=== PATIENT | female | born 1985 | race Caucasian/White ===

== ENCOUNTER 2019-08-24 09:55 | Emergency (ER) | payer SELFPAY ==
[2018-10-08 13:31] VITALS: BMI 20.7
[2019-08-24 09:55] VITALS: BP 137/102; PULSE 119; RESP 16; TEMP 36.6; O2SAT 100; BMI 21.7
--- NOTE | 2019-08-24 10:00 | RAD_ITS ---
STUDY: X-RAY - LEFT FOOT CLINICAL: Female, 34 years old. PAIN STARTED X 3 WEEKS AGO THEN HURT IT AGAIN X TWO DAYS AGO. PAIN WAS SECOND TIME WORSE. PAIN WORSE 2,3,4,5 MTP JOINT AREA. TECHNIQUE: 3 view(s) of the foot. COMPARISON: None. FINDINGS: Normal talus, calcaneus, and tarsal bones. Normal visualized subtalar, talonavicular, calcaneocuboid, tarsal and tarsometatarsal articulations. There is evidence of erosive changes in the head of the fifth metatarsal with mild subluxation at the proximal interphalangeal joint of the fifth toe. Soft tissue swelling is seen at the fifth metatarsal phalangeal joint. Osteomyelitis should be ruled out. Normal metatarsophalangeal joint of the great toe. Normal tibial and fibular sesamoid bones. Normal interphalangeal joint of the great toe. Normal phalanges of the great toe. Normal second through fifth metatarsophalangeal joints. Normal interphalangeal joints and phalanges of the lesser toes. RAD/Foot min 3 Views IMPRESSION: Erosive changes with overlying soft tissue swelling at the head of the fifth metatarsal with a subluxation of the fifth metatarsophalangeal joint. Osteo myelitis should be ruled out. Electronically Signed: Patrice Zambrano, at 10:45 EST , Service support ,
--- NOTE | 2019-08-24 11:01 | ED.VIS.GEN ---
History of Present Illness Chief Complaint: Lower Extremity Injury Informant: Patient Narrative: Patient presents for evaluation of left foot pain. Patient states she injured it a couple weeks ago and it was not fully back to normal when she kicked something and bent the toes back 2 days ago. She notes pain at the base of the third and second toes. She notes some swelling on the plantar surface. She has been trying to walk on the side of her foot which does not cause some inflammation around the lateral fifth MTP joint. The patient reports that she has some swelling unrelated to her visit on her right interphalangeal joints of her hand. She is curious about rheumatoid. Past Medical History - Allergies and Home Meds Allergies/Adverse Reactions: Allergies No Known Allergies Allergy (Verified 10/08/18 13:33) Smoking Status: Current every day smoker Review of Systems General: Denies: Chills, Fever, Sweats Eyes: Denies: Visual changes - bilaterally, Diplopia ENT: Denies: Rhinorrhea, Sore throat Cardiovascular: Denies: Chest pain, Palpitations Respiratory: Denies: Dyspnea, Cough, Dyspnea on exertion Gastrointestinal: Denies: Abdominal pain, Nausea, Vomiting, Diarrhea, Melena, Hematochezia Genitourinary: Denies: Dysuria, Hematuria, Frequency Musculoskeletal: Reports: Extremity Pain. Denies: Back pain Skin: Denies: Rash, Wounds Neurological: Denies: Headache, Weakness, Numbness Physical Exam Vital Signs/Narrative: Vital Signs Temp Pulse Resp BP Pulse Ox 08/24/19 09:55 98 F 119 H 16 137/102 H 100 Inital Vital Signs reviewed: Yes General: Well nourished, Well developed, No Acute Distress Head: Normocephalic, Atraumatic Eyes: Perrl, EOMI ENT: Moist mucous membranes, No rhinorrhea Neck: Supple, Nontender Cardiovascular: Regular rate, Regular rhythm, No murmurs Respiratory: No distress, CTA bilaterally, Chest nontender Abdomen: Soft, Nontender, Nondistended, Normal bowel sounds Back: Nontender, Normal Inspection Extremities: No edema, Tenderness - Tender to palpation over the second and third MTP joint. There is some ecchymosis on the plantar surface. There is some swelling over the lateral fifth MTP joint is nontender. There is some subluxation of the fifth digit on the foot. There is also some rheumatoid-like changes of the right middle finger interphalangeal joint. Skin: Normal color, No rash Neurological: Alert, Oriented x3, Cranial nerves II-XII grossly intact, Normal Strength, Normal Sensation Psychological: Normal affect, Normal Mood Diagnostic/Tx/Re-eval - Medical Decision Making X-rays were negative for fracture. She be placed in a postop shoe and crutches as is very painful for her to bear weight. She will follow-up with podiatry. I have also asked that she follow-up with her PCP to discuss possible evaluation of rheumatoid arthritis.. ED Disposition - Plan for ED Patient: Disposition: Home or Assisted Living Diagnosis: Foot sprain Instructions: What Is Rheumatoid Arthritis?, Sprain Foot Referrals: Care Physician,No Primary [Primary Care Provider] - Orlando Mathur DPM [STAFF PHYSICIAN] - As soon as possible Og Orosco III, MD [STAFF PHYSICIAN] - (for primary care physician if you need one)
[2019-08-24 11:32] VITALS: RESP 16
--- NOTE | 2019-08-24 11:33 | ED.RN ---
REVIEWED D/C INSTRUCTIONS, FOLLOW UP CARE, AND S/S THAT WOULD WARRANT A RETURN TO THE ED WITH PT. PT VERBALIZED AN UNDERSTANDING AND DENIES FURTHER QUESTIONS FOR THIS RN. PT SKIN P/W/D, RESP EVEN AND UNLABORED, PT A&O X 3, NO DISTRESS NOTED. PT AMBULATED OUT OF ED, GAIT STEADY.
== END 2019-08-24 11:34 | disposition home or self-care (01) ==
LOC: ED 11:07
PROVIDERS: Emergency Provider Emergency Medicine
DX: S93.602A Unspecified sprain of left foot, initial encounter (principal); W22.8XXA Striking against or struck by other objects, initial encounter; Y93.9 Activity, unspecified; Y92.9 Unspecified place or not applicable; F17.200 Nicotine dependence, unspecified, uncomplicated
CPT/HCPCS: 73630; 99284

== ENCOUNTER 2021-03-21 15:18 | Emergency (ER) | payer SELFPAY ==
[2021-03-21 15:19] VITALS: BP 137/91; PULSE 92; RESP 18; TEMP 37.7; O2SAT 100; BMI 20.9
--- NOTE | 2021-03-21 15:25 | CM.ED ---
SOCIAL WORK Received call from Hortencia with Crisis prior to patient's arrival. Hortencia has completed assessment and will be bringing in copy of assessment and [place]. Patient requires inpatient psych hospitalization. Patient is self-pay. Crisis to work on placement once patient is medically cleared. Staff alma. Janis Day, PHOTOGRAPHS CURATOR, FURNACE MASON
--- NOTE | 2021-03-21 15:27 | EKG12_ITS ---
Test Reason : SI Blood Pressure : / mmHG Vent. Rate : 071 BPM Atrial Rate : 071 BPM P-R Int : 128 ms QRS Dur : 074 ms QT Int : 396 ms P-R-T Axes : 053 008 018 degrees QTc Int : 430 ms Normal sinus rhythm Normal ECG Confirmed by NAN PANTOJA, MARY ([id number]), film editor supervisor FIDEL GALDAMEZ ([id number]) on 03/26/2021 1:00:22 PM Referred By: JENISE/YVETTE Confirmed By:MARY MONTANA MD
[2021-03-21 15:54] LABS: Bacteria 0 SEEN /hpf (None Seen); Mucous, Urine 0 SEEN /hpf (<or=2+); Red Blood Cells-Urine 0 SEEN /hpf (0-5); White Blood Cells 0 SEEN /hpf (0-5)
[2021-03-21 15:57] LABS: Absolute Lymphocyte Count 1.56 X10^3/uL (0.83-4.51); Absolute Neutrophil Count 7.3 X10^3/uL (2.0-7.7); Basophil# 0.03 X10^3/uL; Basophil% 0.3 % (0-1); Eosinophil# 0.12 X10^3/uL; Eosinophils% 1.2 % (0-5); Hematocrit 48.8 % (37-47); Hemoglobin 16.8 g/dL (12.0-15.0); Lymphocyte # 1.56 X10^3/ul (0.83-4.51); Mean Corp Hgb Conc 34.4 g/dL (32-36); Mean Corpuscular Hgb 32.4 pg (27.0-32.0); Mean Platelet Vol. 8.3 fl (6.2-12.0); Monocyte# 0.63 X10^3/uL; Monocyte% 6.5 % (0-10); NRBC Flagged by Analyzer 0 % (0-5); Neutrophil # 7.34 X10^3/uL (2.7-7.7); Neutrophil % 75.6 % (47-70); Platelet Count 319 K/mm3 (150-450); RBC Distribution Width CV 12.6 % (11.6-14.6); RBC Distribution Width SD 43.7 fl (35.1-43.9); Red Blood Count 5.19 M/mm3 (4.2-5.4); White Blood Count 9.7 K/mm3 (4.4-11.0)
--- NOTE | 2021-03-21 16:00 | RAD_ITS ---
EXAM: XR CHEST, 1 VIEW : 1985 CLINICAL INDICATION: mental TECHNIQUE: Frontal view of the chest. This report was created using [employer] report generation technology. COMPARISON: 07/13/2014 FINDINGS: LUNGS AND PLEURAL SPACES: Unremarkable. No consolidation or edema. No pneumothorax. No effusion. HEART: Unremarkable. Cardiac silhouette not enlarged. MEDIASTINUM: Central airways and mediastinal contour are unremarkable. BONES/JOINTS: Unremarkable. SOFT TISSUES: Unremarkable. RAD/Chest 1 View (Portable) IMPRESSION: No radiographic evidence of acute cardiopulmonary disease. at 1622 Reported and signed by: Raj Lovelace MD Electronically Signed: Raj Lovelace MD at 16:21 EDT Tel , Service support ,
[2021-03-21 16:06] LABS: Color, Urine Yellow (Yellow); Glucose, Dipstick Normal (Normal); Ketone-Dipstick Negative (Negative); Leukocyte Esterase-Dipstick Negative /ul (Negative); Nitrite-Dipstick Negative (Negative); Occult Blood-Urine Negative /ul (Negative); Protein-Dipstick Negative (Negative); Specific Gravity, Urine 1.015 (1.002-1.030); Urine Bilirubin Dipstick Negative (Negative); Urine Clarity Sl. Cloudy (Clear); Urine Urobilinogen Normal (Normal)
[2021-03-21 16:09] LABS: Internal QC Validated? YES +Cl - CLEAR BKGD; Pregnancy, Serum, hCG Quali. NEGATIVE Negative
[2021-03-21 16:12] LABS: Alcohol, Blood (Medical)-Serum < 3.0 mg/dL
[2021-03-21 16:13] LABS: Anion Gap 4 (5-15); BUN 10 mg/dL (7-18); BUN/Creat Ratio 15.9 RATIO (10-20); Calcium,Total 9.4 mg/dL (8.5-10.1); Chloride 105 mmol/L (98-107); Creatinine, Serum 0.63 mg/dL (0.55-1.02); EST Glomerular Filtration Rate 113 mL/min (>60); Est Glom Filt Rate - Afr Amer 137 mL/min (>60); Estimated Creatinine Clearance 113.81 ml/min; Glucose 91 mg/dL (74-106); Potassium 3.5 mmol/L (3.5-5.1); Sodium Level 135 mmol/L (136-145)
[2021-03-21 16:21] LABS: Squamous Epithelial Cells - UA 5-10 SEEN /hpf (5-10)
[2021-03-21 16:23] LABS: Amphetamine Urine VISTA NEGATIVE (<1000 ng/mL); Barbiturate Urine VISTA NEGATIVE (< 200 ng/mL); Benzodiazepine Urine VISTA NEGATIVE (< 200 ng/mL); Cocaine Urine VISTA NEGATIVE (< 300 ng/mL); Ecstacy Urine VISTA NEGATIVE (< 500 ng/mL); Methadone Urine VISTA NEGATIVE (< 300 ng/mL); PCP Urine VISTA NEGATIVE (< 25 ng/mL); THC Urine VISTA POSITIVE (< 50 ng/mL); Vista UDS pH Range 5
--- NOTE | 2021-03-21 18:23 | ED.RN ---
FAXING CHART TO CRISIS
--- NOTE | 2021-03-21 20:05 | CM.ED ---
SOCIAL WORK Call from Ines with [facility]. Ines reports has been attempting to contact Crisis. Patient has been accepted to the [facility] by Dr. Rogers. Nurse to call report to [phone]. Call to Crisis, spoke with Aliya. Aliya updated on the above and will have worker contact Ines. Patient is self-pay, Crisis to set up transport and will call back with [facility] for filler picker. Plan: Martha Day, SENIOR PLANNING ANALYST, RAIL TECHNICIAN
[2021-03-21 20:08] VITALS: BP 147/95; PULSE 88; RESP 18; O2SAT 98
[2021-03-21 20:43] VITALS: BP 147/90; PULSE 88; RESP 18; TEMP 37; O2SAT 98
--- NOTE | 2021-03-21 21:00 | NURSING ---
COUNSELING [facility]ENTER CALLED. [facility] IS SENDING THEIR CAR WITHIN THE HOUR
[2021-03-21] MEDS: LORazepam 0.5 MG Tablet PO (21:02)
--- NOTE | 2021-03-21 21:43 | EDS_ITS ---
HPI HPI - Psych History of Present Illness Chief Complaint: Suicidal Informant: patient Associated Symptoms Associated Symptoms - Psych: Positive for Suicidal Thoughts Specific plan (suicidal thought): overdose Narrative Narrative: Patient is a 35-year-old female presenting with worsening depression and suicidal ideation. She states she has a history of depression is not on any medications. She states she has been having worsening thoughts of wanting to harm herself. She is afraid she might act on it. She think she would overdose on something. She denies any homicidal ideations or hallucinations. No other complaints at this time. PFSH PFSH Home Medications pediatric multivitamin [Gummi Bear Multivitamin] 1 tab PO DAILY 03/21/21 [History Last Taken Unknown] Allergy/AdvReac Type Severity Reaction Status Date / Time No Known Allergies Allergy Verified 03/21/21 15:19 Social History Smoking Status: Current every day smoker tobacco type: cigarettes alcohol intake: current alcohol intake frequency: a few times a month ROS ROS ED Constitutional Constitutional ED: Denies fever(s) Eyes Eyes: Denies blurry vision or loss of vision ENT ENT ED: Denies rhinorrhea or sore throat Cardiovascular Cardiovascular: Denies chest pain or dizziness Respiratory/Chest Respiratory/Chest: Denies cough or dyspnea Gastrointestinal Gastrointestinal: Denies nausea or vomiting Genitourinary Genitourinary ED: Denies dysuria or hematuria Musculoskeletal Musculoskeletal: Denies arthralgias or myalgias Integumentary Denies rash or wounds Neurologic Neurologic: Denies focal weakness or headache(s) Psychiatric Psychiatric: Reports anxiety, depression and suicidal thoughts; Denies behavioral changes EXAM Physical Exam Const Vital Signs: 03/21/21 15:19 03/21/21 20:08 03/21/21 20:43 Temperature 99.8 F H 98.6 F Temperature Source Temporal Pulse Rate 92 88 88 Respiratory Rate 18 18 18 Blood Pressure 137/91 H 147/95 H 147/90 H Blood Pressure Mean 106 112 109 Pulse Ox 100 98 98 Oxygen Delivery Method Room Air Room Air Positive well nourished, well developed and no apparent distress General Appearance ED: well developed HEENT Reports normocephalic atraumatic Nose: no nasal discharge External Ear: external ears normal Mouth ED: Yes moist mucous membranes normal Eyes PERRL and EOMs intact bilaterally Neck full ROM and no meningeal signs Chest Wall inspection of chest normal Resp normal respiratory effort and normal air movement Cardio regular rate, regular rhythm and no murmurs Rate: regular rate Rhythm: regular rhythm GI normal to inspection, nondistended, normoactive bowel sounds, non-tender and non-distended Palpation: soft Extremity normal to inspection and full ROM Neuro oriented x3 and no focal motor deficits Neuro Narrative: Patient is slightly tremulous Sensorium / Orientation: alert Psych Appearance: grossly normal and appropriate Attitude: other Anxious, nervous Activity / Motor Behavior: appropriate eye contact Thought Content: suicidality, No delusion(s) and No hallucination(s) Memory / Cognition: memory grossly intact Insight: fair Skin no rashes or lesions noted and no wounds MDM MDM MDM Narrative Medical decision making narrative: Patient evaluated for suicidal ideations. She is evaluated by crisis and accepted at [facility]. She is medically cleared. Patient is cooperative in the emergency room. She is quite anxious and is given a dose of Ativan to help with this. Lab Data Labs: Laboratory Results - last 24 hr 03/21/21 03/21/21 03/21/21 15:35 15:35 15:43 WBC 9.7 RBC 5.19 Hgb 16.8 H Hct 48.8 H MCV 94.0 MCH 32.4 H MCHC 34.4 RDW Std Deviation 43.7 RDW Coeff of Anastacio 12.6 Plt Count 319 MPV 8.3 Immature Gran % (Auto) 0.400 Neut % (Auto) 75.6 H Lymph % (Auto) 16.0 L [place] % (Auto) 6.5 Eos % (Auto) 1.2 Baso % (Auto) 0.3 Absolute Neuts (auto) 7.3 Absolute Lymphs (auto) 1.56 Nucleated RBC % 0 Sodium Potassium Chloride Carbon Dioxide Anion Gap BUN Creatinine Estim Creat Clear Calc Est GFR (MDRD) Af Amer Est GFR (MDRD) Non-Af BUN/Creatinine Ratio Glucose Calcium Serum , Qual Urine Color Yellow Urine Clarity Sl. Cloudy Urine pH 6.0 Ur Specific [place] 1.015 Urine Protein Negative Urine Glucose (UA) Normal Urine Ketones Negative Urine Occult Blood Negative Urine Nitrite Negative Urine Bilirubin Negative Urine Urobilinogen Normal Ur Leukocyte Esterase Negative Urine RBC 0 SEEN Urine WBC 0 SEEN Ur Squamous Epith Cells 5-10 SEEN Urine Bacteria 0 SEEN Urine Mucus 0 SEEN Urine Opiates Screen NEGATIVE Urine Methadone Screen NEGATIVE Ur Barbiturates Screen NEGATIVE Ur Phencyclidine Scrn NEGATIVE Ur Amphetamines Screen NEGATIVE U Methamphetamin-MDMA NEGATIVE U Benzodiazepines Scrn NEGATIVE Urine Cocaine Screen NEGATIVE U Cannabinoids Screen POSITIVE H Ur Drug Screen Comment Ethyl Alcohol 03/21/21 03/21/21 03/21/21 15:43 15:43 15:43 WBC RBC Hgb Hct MCV MCH MCHC RDW Std Deviation RDW Coeff of Anastacio Plt Count MPV Immature Gran % (Auto) Neut % (Auto) Lymph % (Auto) [place] % (Auto) Eos % (Auto) Baso % (Auto) Absolute Neuts (auto) Absolute Lymphs (auto) Nucleated RBC % Sodium 135 L Potassium 3.5 Chloride 105 Carbon Dioxide 26.0 Anion Gap 4 L BUN 10 Creatinine 0.63 Estim Creat Clear Calc 113.81 Est GFR (MDRD) Af Amer 137 Est GFR (MDRD) Non-Af 113 BUN/Creatinine Ratio 15.9 Glucose 91 Calcium 9.4 Serum , Qual NEGATIVE Urine Color Urine Clarity Urine pH Ur Specific [place] Urine Protein Urine Glucose (UA) Urine Ketones Urine Occult Blood Urine Nitrite Urine Bilirubin Urine Urobilinogen Ur Leukocyte Esterase Urine RBC Urine WBC Ur Squamous Epith Cells Urine Bacteria Urine Mucus Urine Opiates Screen Urine Methadone Screen Ur Barbiturates Screen Ur Phencyclidine Scrn Ur Amphetamines Screen U Methamphetamin-MDMA U Benzodiazepines Scrn Urine Cocaine Screen U Cannabinoids Screen Ur Drug Screen Comment Ethyl Alcohol < 3.0 Radiography Diagnostic Testing: Radiology Impression Chest X-Ray 03/21/21 16:00 IMPRESSION: No radiographic evidence of acute cardiopulmonary disease. at 1622 Reported and signed by: Raj Lovelace MD Electronically Signed: Raj Lovelace MD at 16:21 EDT Tel , Service support , Discharge Plan Triage Chief Complaint: Suicidal ED Provider: Izabella Jeff Dx/Rx/DC Orders Clinical Impression: Depression with suicidal ideation Prescriptions: No Action Gummi Bear Multivitamin Tablet,Chewable 1 tab PO DAILY RF: 0 Primary Care Provider: Care Physician,No Primary Referrals: Care Physician,No Primary [Primary Care Provider] - Disposition Disposition: Psychiatric Hospital or Unit Discharge Location: [facility]
== END 2021-03-21 22:29 ==
PROVIDERS: Emergency Provider Emergency Medicine
DX: F32.9 Major depressive disorder, single episode, unspecified (principal); R45.851 Suicidal ideations; F17.210 Nicotine dependence, cigarettes, uncomplicated
CPT/HCPCS: 36415; 71045; 80048; 80307; 81001; 82077; 84703; 85025; 87426; 93005; 99285

== ENCOUNTER → 2022-11-26 | Outpatient (CLI) | payer OTHER, SELFPAY ==
[2022-11-26 13:44] LABS: Erythrocyte Sedimentation Rate 5 mm/hr (0-30)
[2022-11-26 13:45] LABS: Absolute Lymphocyte Count 1.64 X10^3/uL (0.83-4.51); Basophil# 0.04 X10^3/uL; Basophil% 0.4 % (0-1); Eosinophils% 2.1 % (0-5); Hematocrit 43.4 % (37-47); Hemoglobin 14.4 g/dL (12.0-15.0); Lymphocyte # 1.64 X10^3/ul (0.83-4.51); Lymphocyte % 17.3 % (19-41); Mean Corp Hgb Conc 33.2 g/dL (32-36); Mean Corpuscular Hgb 31.4 pg (27.0-32.0); Mean Corpuscular Volume 94.6 fL (81-99); Monocyte# 0.53 X10^3/uL; Monocyte% 5.6 % (0-10); NRBC Flagged by Analyzer 0 % (0-5); Neutrophil # 7.04 X10^3/uL (2.7-7.7); Neutrophil % 74.2 % (47-70); Platelet Count 407 K/mm3 (150-450); RBC Distribution Width SD 44.7 fl (35.1-43.9); Red Blood Count 4.59 M/mm3 (4.2-5.4); White Blood Count 9.5 K/mm3 (4.4-11.0)
[2022-11-26 14:30] LABS: CRP 3.55 mg/L (0.0-3.0); Uric Acid 4.2 mg/dL (2.6-6.0)
[2022-11-28 13:08] LABS: ANTINUCLEAR ANTIBODIES DIRECT Negative (Negative)
== END | disposition home or self-care (01) ==
LOC: LAB 11:37
PROVIDERS: Referring Provider Student in an Organized Health Care Education/Training Program; Visit Provider Student in an Organized Health Care Education/Training Program
DX: M19.041 Primary osteoarthritis, right hand (principal); M19.042 Primary osteoarthritis, left hand
CPT/HCPCS: 36415; 84550; 85025; 85652; 86038; 86140; 86431